=== PATIENT | female | born 1950 ===

== ENCOUNTER 2020-07-21 12:03 | Day surgery (SDC) | payer MEDICARE ==
[2020-07-21] MEDS ORDERED: LIDOCAINE HCL 2% 100 MG/5 ML IJ ONE (12:04)
[2020-07-21] MEDS ORDERED: Ketamine HCl 50 MG/ML ONE (13:21)
[2020-07-21] MEDS ORDERED: DIPRIVAN 200 MG/20 ML IV ONE (13:21)
--- NOTE | 2020-07-21 14:43 | XRAY ---
Indication: Bilateral L4-S1 MBB. Intraoperative fluoroscopy provided for 16 seconds. Single digital spot image submitted for interpretation demonstrates posterior needle tips projecting over the expected left and right L4-S1 nerve roots. Correlate with intraoperative findings/report.
--- NOTE | 2020-07-21 15:16 | XRAY ---
16 seconds fluoroscopy time in surgery for bilateral L4-S1 MBB.
[2020-07-21] MEDS ORDERED: Lactated Ringers 1,000 ML IV ONE (16:15)
== END 2020-07-21 13:49 | disposition home or self-care (01) ==
LOC: SDC-PAIN 12:03
PROVIDERS: ATTEND Psychiatry & Neurology Pain Medicine
DX: M47.816 Spondylosis without myelopathy or radiculopathy, lumbar region (principal); I10 Essential (primary) hypertension; M19.90 Unspecified osteoarthritis, unspecified site; F41.9 Anxiety disorder, unspecified; F32.9 Major depressive disorder, single episode, unspecified; Z79.899 Other long term (current) drug therapy
CPT/HCPCS: 64493; 64494; 72020; 77002; J2704

== ENCOUNTER 2020-11-17 12:14 | Day surgery (SDC) | payer MEDICARE ==
[2020-11-17] MEDS ORDERED: BUPIVACAINE 0.5% VIAL IJ ONE (12:15)
[2020-11-17] MEDS ORDERED: DIPRIVAN 200 MG/20 ML IV ONE (14:00)
--- NOTE | 2020-11-17 15:01 | XRAY ---
Indication: Bilateral L4-S1 MBB. Intraoperative fluoroscopy provided for 11 seconds. Single digital spot image submitted for interpretation demonstrates posterior needle tips projecting over the expected left and right L4-S1 nerve roots. Correlate with intraoperative findings/report.
--- NOTE | 2020-11-17 15:21 | XRAY ---
11 seconds fluoroscopy time in surgery for bilateral L4-S1 MBB.
[2020-11-17] MEDS ORDERED: Lactated Ringers 1,000 ML IV ONE (15:34)
== END 2020-11-17 14:17 | disposition home or self-care (01) ==
LOC: SDC-PAIN 12:14
PROVIDERS: ATTEND Psychiatry & Neurology Pain Medicine
DX: M47.816 Spondylosis without myelopathy or radiculopathy, lumbar region (principal); Z79.899 Other long term (current) drug therapy; I10 Essential (primary) hypertension; F41.8 Other specified anxiety disorders
CPT/HCPCS: 64493; 64494; 72020; 77002; J2704

== ENCOUNTER 2020-12-29 11:23 | Day surgery (SDC) | payer MEDICARE ==
[2020-12-29] MEDS ORDERED: Versed 2 MG/2 ML Injection ONE (13:05)
[2020-12-29] MEDS ORDERED: DIPRIVAN 200 MG/20 ML IV ONE (13:05)
[2020-12-29] MEDS ORDERED: Lactated Ringers 1,000 ML IV ONE (13:49)
--- NOTE | 2020-12-29 17:10 | XRAY ---
26 seconds fluoroscopy time in surgery for left L4-S1 RFA.
--- NOTE | 2020-12-31 09:17 | XRAY ---
Indication: Left L4-S1 RFA. Intraoperative fluoroscopy was provided for 26 seconds. 3 digital spot images submitted for interpretation demonstrate posterior needle tips projected over the expected course of the left L4-S1 nerve roots. Correlate with intraoperative findings/report.
== END 2020-12-29 13:40 | disposition home or self-care (01) ==
LOC: SDC-PAIN 11:23
PROVIDERS: ATTEND Psychiatry & Neurology Pain Medicine
DX: M47.816 Spondylosis without myelopathy or radiculopathy, lumbar region (principal); Z79.899 Other long term (current) drug therapy
CPT/HCPCS: 64635; 64636; 72100; 77002; 99100; J2250; J2704

== ENCOUNTER 2021-01-05 11:12 | Day surgery (SDC) | payer MEDICARE ==
[2021-01-05] MEDS ORDERED: Depo-Medrol 40 MG/ML IM ONE (11:13)
[2021-01-05] MEDS ORDERED: BUPIVACAINE 0.5% VIAL IJ ONE (11:13)
[2021-01-05] MEDS ORDERED: Xylocaine 1% Vial 30 ML PF IJ ONE (11:13)
[2021-01-05] MEDS ORDERED: DIPRIVAN 200 MG/20 ML IV ONE (11:42)
[2021-01-05] MEDS ORDERED: Ketamine HCl 50 MG/ML ONE (11:42)
[2021-01-05] MEDS ORDERED: Lactated Ringers 1,000 ML IV ONE (14:05)
--- NOTE | 2021-01-05 15:00 | XRAY ---
Indication: Right L4-S1 RFA. Intraoperative fluoroscopy provided for 22 seconds. 3 digital spot images submitted for interpretation demonstrates posterior needle tips projecting over the right L4-S1 nerve roots. Correlate with intraoperative findings/report.
--- NOTE | 2021-01-05 15:03 | XRAY ---
22 seconds fluoroscopy time in surgery for right L4-S1 RFA.
== END 2021-01-05 13:15 | disposition home or self-care (01) ==
LOC: SDC-PAIN 11:12
PROVIDERS: ATTEND Psychiatry & Neurology Pain Medicine
DX: M47.816 Spondylosis without myelopathy or radiculopathy, lumbar region (principal); Z79.899 Other long term (current) drug therapy
CPT/HCPCS: 64635; 64636; 72100; 77002; 99100; J1030; J2001; J2704